=== PATIENT | female | born 1975 | race Hispanic/Latino ===

== ENCOUNTER 2016-07-01 01:00 | Emergency (ER) | payer BC ==
[2016-07-01 01:10] VITALS: BMI 23.3
[2016-07-01 01:13] VITALS: TEMP 97.6
[2016-07-01] MEDS ORDERED: Sodium Chloride 0.9% 1,000 ML IV STA (01:25)
[2016-07-01 01:30] LABS: URINE BILIRUBIN NEGATIVE (NEGATIVE); URINE BLOOD NEGATIVE (NEGATIVE); URINE GLUCOSE (UA) NEGATIVE (NEGATIVE); URINE KETONE NEGATIVE (NEGATIVE); URINE LEUKOCYTE ESTERASE NEGATIVE Leu/uL (NEGATIVE); URINE PROTEIN NEGATIVE mg/dL (<30 mg/dL); URINE UROBILINOGEN 0.2 E.U./dL (<1 E.U./dL)
--- NOTE | 2016-07-01 01:31 | ED PDOC ---
Arrival/HPI - General Chief Complaint: Back Pain Time Seen by Provider: 07/01/16 01:14 Historian: Patient - History of Present Illness Narrative History of Present Illness (Text): 07/01/16 01:27 Lucy Cai is a 40 year old female who presents to the emergency department complaining of intermittent, non-positional left flank pain since yesterday afternoon. Reports pain radiates to left lower abdomen. No relieving or exacerbating factors. Denies dysuria, increased frequency or hematuria. Denies fever, chills, headache, dizziness, chest pain, difficulty breathing, nausea, vomiting, diarrhea, or any other complaints at this time. Time/Duration: Other (yesterday afternoon ) Symptom Onset: Gradual Symptom Course: Intermittent Severity Level: Mild Activities at Onset: Light Past Medical History - Provider Review Nursing Documentation Reviewed: Yes - Infectious Disease Hx of Infectious Diseases: None - Cardiac Hx Cardiac Disorders: No - Pulmonary Hx Respiratory Disorders: No - Neurological Hx Neurological Disorder: No - HEENT Hx HEENT Disorder: Yes (CONTACTS) - Renal Hx Renal Disorder: No - Endocrine/Metabolic Hx Endocrine Disorders: No - Hematological/Oncological Hx Blood Disorders: No - Integumentary Hx Dermatological Disorder: No - Musculoskeletal/Rheumatological Hx Back Pain: Yes (CERVICAL) - Gastrointestinal Hx Gastrointestinal Disorders: No - Genitourinary/Gynecological Hx Genitourinary Disorders: Yes Hx Reproductive Disorders: Yes (MENORRHAGIA) - Psychiatric Hx Psychophysiologic Disorder: No Hx Substance Use: No - Surgical History Hx Section: Yes (x1) Hx Tubal Ligation: Yes Other/Comment: SINUS POLYPS/HEMORRHOIDECTOMY - Anesthesia Hx Anesthesia: Yes Hx Anesthesia Reactions: No Hx Malignant Hyperthermia: No Family/Social History - Physician Review Nursing Documentation Reviewed: Yes Family/Social History: No Known Family HX Smoking Status: Former Smoker Hx Alcohol Use: Yes Frequency of alcohol use: Socially Hx Substance Use: No Allergies/Home Meds Allergies/Adverse Reactions: Allergies No Known Allergies Allergy (Verified 01/04/16 09:31) Home Medications: Home Meds Medication Instructions Recorded Confirmed Zolpidem [Ambien] 1 tab PO HS 01/04/16 01/12/16 Physical Exam - Physical Exam Narrative Physical Exam (Text): - Review of Systems Constitutional: Normal. absent: Fatigue, Weight Change, Fevers Eyes: Normal ENT: Normal Respiratory: Normal absent: SOB, Cough, Sputum Cardiovascular: Normal absent: Chest pain, Palpitations, Syncope Gastrointestinal: Present: LLQ abdominal pain absent: Diarrhea, Nausea, Vomiting Genitourinary: Normal. absent: Dysuria, Frequency, Hematuria Musculoskeletal: Present: Left flank pain absent: Arthralgias, Neck Pain Skin: Normal Neurological: Normal absent: Focal Weakness Endocrine: Normal Hemo/Lymphatic: Normal Psychiatric: Normal - Physical exam Patient appears age appropriate, speaking full sentences without difficulty - Systems Exam Head: Present: Atraumatic, Normocephalic Pupils: Present: PERRL Extraocular Muscles: Present: EOMI Conjunctiva: Present: Normal Mouth: Present: Moist Mucous Membranes Neck: Present: Normal Range of Motion. No: MIDLINE TENDERNESS, Paraspinal Tenderness Respiratory/Chest: Present: Clear to Auscultation, Good Air Exchange. No: Respiratory Distress, Accessory Muscle Use, Tachypnic Cardiovascular: Present: Regular Rate and Rhythm, Normal S1, S2, Peripheral Pulses Present. No: Murmurs Abdomen: Present: Normal Bowel Sounds, No: Tenderness, Peritoneal Signs, Rebound, Guarding, Distention Back: Present: Mild left CVA and left lower back tenderness to palpation. No: Midline Tenderness. Upper Extremity: Present: Normal Inspection. No: Cyanosis, Edema Lower Extremity: Present: Normal Inspection. No: Edema Neurological: Present: GCS=15, Speech Normal, cranial nerves II through XII fully intact with no cerebellar abnormality, neuro-sensory fully intact. No focal neurological deficits. Skin: Present: Warm, Dry, Normal Color. No: Rashes Lymphatic: Present: OX3, NI, NC Psychiatric: Present: Alert, Oriented x 3, Normal Insight, Normal Concentration Vital Signs Reviewed: Yes Vital Signs Temp Pulse Resp BP Pulse Ox 07/01/16 05:05 73 16 122/72 96 07/01/16 01:12 97.6 F 74 18 128/84 100 Temperature: Afebrile Blood Pressure: Normal Pulse: Regular Respiratory Rate: Normal Appearance: Positive for: Well-Appearing, Non-Toxic, Comfortable Pain Distress: None Mental Status: Positive for: Alert and Oriented X 3 Medical Decision Making ED Course and Treatment: 07/01/16 01:35 Impression: A 40 year old female who presents to the emergency department complaining of left flank pain radiating to LLQ abdomen since yesterday afternoon. Denies any urinary complaints. On PE, there is mild tenderness to palpation to left CVA and left lower back. PERC negative Differential Diagnosis included but are not limited to: Pyelo vs. renal colic vs. musculoskeletal. Plan: -- CT Abdomen pelvis -- Labs -- Toradol -- IV fluids -- POC urine -- Reassess and disposition Progress Notes: 07/01/16 03:39 CT Interpreted by: Mckay Eid MD No CT evidence of urolithiasis. 07/01/16 04:48 UA unremarkable no acute CT findings no acute lab findings pt states she still has some pain offered further observation in the ER, but pt states she wants to go home, requested another morhine shot, and states her will drive her home. pt states she feels comfortable being dc'd home at this time Pt states she understands to return to the ER right away for new or worsening symptoms or for inability to f/u with PMD or specialist as instructed. Patient states that she fully agrees with and understands discharge instructions. States that she agrees with the plan and disposition. Verbalized and repeated discharge instructions and plan. I have given the patient opportunity to ask any additional questions. 07/03/16 14:50 spoke with patient today, states she still has point tenderness over her lower ribs on the effected side, but pain is getting better every day. states she spoke with her PMD Dr. Moshe Ortega and has an appt for this upcoming Monday. I offered reevaluation to pt in the ER again if she does not feel comfortable waiting until her appointment. - Lab Interpretations Lab Results: 07/01/16 01:27 07/01/16 01:27 Lab Results 07/01/16 01:27: Sodium 137, Potassium 4.2, Chloride 103, Carbon Dioxide 26, Anion Gap 12, BUN 17, Creatinine 0.7, Est GFR ( Amer) > 60, Est GFR (Non- Af Amer) > 60, Random Glucose 101, Calcium 9.6, Total Bilirubin 0.4, AST 32, ALT 27, Alkaline Phosphatase 63, Total Protein 7.6, Albumin 4.3, Globulin 3.3, Albumin/Globulin Ratio 1.3 07/01/16 01:27: PT 10.1, INR 0.94, APTT 29.9 07/01/16 01:27: WBC 8.9, RBC 4.46, Hgb 13.1, Hct 38.1, MCV 85.4, MCH 29.4, MCHC 34.4, RDW 13.1, Plt Count 238, MPV 9.6, Gran % 74.2 H, Lymph % (Auto) 17.9 L, [place] % (Auto) 6.1 H, Eos % (Auto) 1.2 L, Baso % (Auto) 0.6, Gran # 6.57 H, Lymph # 1.6, [place] # 0.5, Eos # 0.1, Baso # 0.05 07/01/16 01:00: Urine Color yellow, Urine Appearance Clear, Urine pH 6.0, Ur Specific [place] >= 1.030, Urine Protein Negative, Urine Glucose (UA) Negative, Urine Ketones Negative, Urine Blood Negative, Urine Nitrate Negative, Urine Bilirubin Negative, Urine Urobilinogen 0.2, Ur Leukocyte Esterase Negative I have reviewed the lab results: Yes - RAD Interpretation Narrative RAD Interpretations (Text): EXAM: CT Abdomen and Pelvis Without Intravenous Contrast FINDINGS: Lower thorax: No acute findings. ABDOMEN: Liver: Unremarkable. Gallbladder and bile ducts: No calcified stones. No ductal dilation. Pancreas: Unremarkable. No ductal dilation. Spleen: No splenomegaly. Adrenals: No mass. Kidneys and ureters: No renal calculi. No hydronephrosis. Stomach and bowel: No definite mural thickening. No obstruction. Appendix: Normal caliber. No inflammation. PELVIS: Bladder: Unremarkable. No stones. Reproductive: Unremarkable as visualized. ABDOMEN and PELVIS: Intraperitoneal space: Trace free fluid within pelvis. No free air. Bones/joints: No acute fracture. Soft tissues: Tiny umbilical hernia containing fat. Vasculature: Unremarkable. No abdominal aortic aneurysm. Lymph nodes: No pathologically enlarged lymph nodes. IMPRESSION: 1. No CT evidence of urolithiasis. 2. Incidental/non-acute findings are described above. Dictated and Authenticated by: Mckay Eid MD Radiology Orders: 07/01/16 01:25 ABD & PELVIS W/O PO OR IV CONT [CT] Stat Experience Planning Strategist: Radiologist - Medication Orders Current Medication Orders: Discontinued Medications Sodium Chloride (Sodium Chloride 0.9%) 1,000 mls @ 1,000 mls/hr IV .Q1H STA Stop: 07/01/16 02:24 Last Admin: 07/01/16 01:42 Dose: 1,000 mls/hr Ketorolac Tromethamine (Toradol) 30 mg IVP STAT STA Stop: 07/01/16 01:26 Last Admin: 07/01/16 01:43 Dose: 30 mg Morphine Sulfate (Morphine) 4 mg IVP STAT STA Stop: 07/01/16 02:43 Last Admin: 07/01/16 02:58 Dose: 4 mg Morphine Sulfate (Morphine) 4 mg IVP STAT STA Stop: 07/01/16 04:53 Last Admin: 07/01/16 04:57 Dose: 4 mg - Scribe Statement The provider has reviewed the documentation as recorded by the Merrickibe Cruz Abraham Provider Attestation: Provider Scribe Attestation: All medical record entries made by the Merrickibe were at my direction and personally dictated by me. I have reviewed the chart and agree that the record accurately reflects my personal performance of the history, physical exam, medical decision making, and the department course for this patient. I have also personally directed, reviewed, and agree with the discharge instructions and disposition. Disposition/Present on Arrival - Present on Arrival Any Indicators Present on Arrival: No History of DVT/PE: No History of Uncontrolled Diabetes: No Urinary Catheter: No History of Decub. Ulcer: No History Surgical Site Infection Following: None - Disposition Have Diagnosis and Disposition been Completed?: Yes Diagnosis: Back pain Disposition: HOME/ ROUTINE Disposition Time: 04:53 Patient Plan: Discharge Condition: GOOD Discharge Instructions (ExitCare): Acute Low Back Pain (ED), Back Pain (ED) Additional Instructions: PLEASE RETURN TO THE EMERGENCY DEPARTMENT FOR NEW OR WORSENING SYMPTOMS. RETURN RIGHT AWAY IF YOU CANNOT FOLLOW UP WITH YOUR PRIMARY CARE DOCTOR, CLINIC, OR SPECIALIST IN 1-2 DAYS. Prescriptions: diaZEpam [Valium] 5 mg PO DAILY PRN #5 tab PRN Reason: Pain, Moderate (4-7) Ibuprofen [Motrin] 600 mg PO Q8 PRN #12 tab PRN Reason: Pain, Moderate (4-7) Referrals: Jama Lundberg DO [Staff Provider] - Follow up with primary
[2016-07-01 01:34] LABS: URINE APPEARANCE CLEAR (CLEAR)
[2016-07-01 01:42] LABS: ADD MANUAL DIFF? NO
[2016-07-01 01:53] LABS: BASO # 0.05 K/mm3 (0.0-2.0); BASO % 0.6 % (0.0-3.0); EOS # 0.1 (0.0-0.7); EOS % 1.2 % (1.5-5.0); GRAN # 6.57 (1.4-6.5); GRAN % 74.2 % (50.0-68.0); HEMATOCRIT 38.1 % (36.0-48.0); INR 0.94 (0.93-1.08); LYMPH # 1.6 (1.2-3.4); LYMPH % 17.9 % (22.0-35.0); MEAN CELL VOLUME 85.4 fL (80.0-105.0); MEAN CORPUSCULAR HEMOGLOBIN 29.4 pg (25.0-35.0); MEAN CORPUSCULAR HGB CONC 34.4 g/dl (31.0-37.0); MEAN PLATELET VOLUME 9.6 fl (7.0-11.0); MONO # 0.5 (0.1-0.6); MONO % 6.1 % (1.0-6.0); PARTIAL THROMBOPLASTIN TIME 29.9 Seconds (23.7-30.8); PLATELET COUNT 238 10^3/uL (120.0-450.0); RED CELL DISTRIBUTION WIDTH 13.1 % (11.5-14.5); WHITE BLOOD COUNT 8.9 10^3/ul (4.5-11.0)
[2016-07-01 01:56] LABS: ALB/GLOB RATIO 1.3 (1.1-1.8); ALKALINE PHOSPHATASE 63 U/L (38-133); ALT/SGPT 27 U/L (7-56); AST/SGOT 32 U/L (15-39); BILIRUBIN,TOTAL 0.4 mg/dL (0.2-1.3); BLOOD UREA NITROGEN 17 mg/dL (7-21); CALCIUM 9.6 mg/dL (8.4-10.5); CARBON DIOXIDE 26 mmol/L (21-33); CHLORIDE 103 mmol/L (98-107); GFR AFRICAN-AMERICAN > 60; GLUCOSE,RANDOM 101 mg/dL (70-110); POTASSIUM 4.2 mmol/L (3.6-5.0); SODIUM 137 mmol/L (132-148); TOTAL PROTEIN 7.6 g/dL (5.8-8.3)
[2016-07-01] MEDS ORDERED: Morphine 4 mg/ml ISec IVP STA ×2 (02:42→04:52)
[2016-07-01 05:11] VITALS: BP 122/72; PULSE 73; RESP 16; O2SAT 96
--- NOTE | 2016-07-01 10:09 | CT ---
PROCEDURE: CT Abdomen and Pelvis without intravenous contrast HISTORY: Renal colic COMPARISON: None. TECHNIQUE: Technique. Contrast Dose: Radiation dose: Total exam DLP = 653 mGy-cm. This CT exam was performed using one or more of the following dose reduction techniques: Automated exposure control, adjustment of the mA and/or kV according to patient size, and/or use of iterative reconstruction technique. FINDINGS: LOWER THORAX: Unremarkable. LIVER: Unremarkable. No gross lesion or ductal dilatation. GALLBLADDER AND BILE DUCTS: Unremarkable. PANCREAS: Unremarkable. No gross lesion or ductal dilatation. SPLEEN: Unremarkable. ADRENALS: Unremarkable. No mass. KIDNEYS AND URETERS: Unremarkable. No hydronephrosis. No solid mass. VASCULATURE: Unremarkable. No aortic aneurysm. BOWEL: Unremarkable. No obstruction. No gross mural thickening. APPENDIX: Unremarkable. Normal appendix. PERITONEUM: Unremarkable. No free fluid. No free air. LYMPH NODES: Unremarkable. No enlarged lymph nodes. BLADDER: Unremarkable. REPRODUCTIVE: Unremarkable. BONES: No acute fracture. OTHER FINDINGS: None. IMPRESSION: Unremarkable non contrast enhanced CT of the abdomen and pelvis.
== END 2016-07-01 05:13 | disposition home or self-care (01) ==
LOC: ED 01:00 → MERGE 01:00 → ED 05:13
DX: M54.9 Dorsalgia, unspecified (principal)
CPT/HCPCS: 74176; 80053; 81003; 85025; 85610; 85730; 96374; 96375; 96376; 99282; J1885; J2270; J7040